=== PATIENT | male | born 1940 | race African-American/Black ===

== ENCOUNTER 2017-10-12 18:14 | Inpatient (IN) | payer OTHER ==
[~2017-10-12] VITALS: Ht 182.9 cm; Wt 72.6 kg
[2017-10-12 18:24] VITALS: Ht 182.9 cm; Wt 72.6 kg
[2017-10-12 19:31] LABS: BASOPHIL % 0.3 % (0-2); PLATELET COUNT 187 x10^3mcL (130-400)
[2017-10-12 19:45] LABS: CALCIUM 8.6 mg/dL (8.5-10.1); CARBON DIOXIDE 30.1 mmol/L (21-32); CHLORIDE SERUM 97 mmol/L (98-107); CREATININE SERUM 1.1 mg/dL (0.7-1.3); GLUCOSE SERUM 146 mg/dL (74-106); POTASSIUM SERUM 4.6 mmol/L (3.5-5.1); SODIUM SERUM 130 mmol/L (136-145)
[2017-10-12 19:51] LABS: RED CELL DISTRIBUTION WIDTH 15.3 % (11.5-14.5)
[2017-10-12 19:56] LABS: ALBUMIN 3.9 g/dL (3.4-5.0); ALKALINE PHOSPHATASE 198 U/L (46-116); ALT/SGPT 465 U/L (16-63); AST/SGOT 519 U/L (15-37); BILIRUBIN TOTAL 2.7 mg/dL (0.20-1.00); C REACTIVE PROTEIN 4.9 mg/dL (<=0.9); TOTAL PROTEIN, SERUM 7.9 g/dL (6.4-8.2)
[2017-10-12 20:01] LABS: FREE T4 1.14 ng/dL (0.76-1.46); FREE THYROXINE INDEX 3.3 ug/dL (1.4-4.5); T4(THYROXINE) 9.9 ug/dL (4.7-13.3)
[2017-10-12 20:07] LABS: CK-MB 3.2 ng/mL (0-3.6); T3 TOTAL 1.02 ng/mL
[2017-10-12 20:25] LABS: microscopic required? NO
[2017-10-12 20:32] LABS: urine erythrocyte NEGATIVE (NEGATIVE)
[2017-10-12 20:41] LABS: ERYTHROCYTE SED RATE 12 mm/hr (0-20)
[2017-10-12] MEDS ORDERED: ASPIR 8181 MG PO (20:53)
[2017-10-12] MEDS ORDERED: AMITRIPTYLINE H25 MG PO (20:53)
[2017-10-12] MEDS ORDERED: AMLODIPINE BESYL5 M2 PO (20:53)
[2017-10-12] MEDS ORDERED: ZESTRIL20 MG PO (20:54)
[2017-10-12] MEDS ORDERED: COLACE100 MG PO (20:54)
[2017-10-12] MEDS ORDERED: LIPI20 PO (20:54)
[2017-10-12] MEDS ORDERED: LEADER MELATONIN5 MG PO (20:55)
[2017-10-12] MEDS ORDERED: SENNA8.6 M2 PO (20:56)
[2017-10-12] MEDS ORDERED: SEROQUEL25 MG PO (20:56)
[2017-10-12] MEDS ORDERED: TERAZOSIN HCL2 MG PO (20:56)
[2017-10-12] MEDS ORDERED: TAMSULOSIN HYD0.4 M1 PO (20:56)
[2017-10-12 21:16] LABS: MAGNESIUM 1.9 mg/dL (1.8-2.4); PHOSPHOROUS 2.7 mg/dL (2.5-4.9)
[2017-10-12 21:18] LABS: CHOLESTEROL/HDL RATIO 1.7
[2017-10-12 21:38] VITALS: BP 130/72
[2017-10-12 23:00] VITALS: BP 112/69
[2017-10-13 05:06] VITALS: BP 123/73
[2017-10-13 06:49] LABS: PLATELET COUNT 143 x10^3mcL (130-400)
[2017-10-13 06:50] LABS: BASOPHIL % 0 % (0-2); RED CELL DISTRIBUTION WIDTH 15.9 % (11.5-14.5)
[2017-10-13 07:21] LABS: CALCIUM 7.7 mg/dL (8.5-10.1); CARBON DIOXIDE 25.4 mmol/L (21-32); CHLORIDE SERUM 106 mmol/L (98-107); CREATININE SERUM 0.8 mg/dL (0.7-1.3); GLUCOSE SERUM 180 mg/dL (74-106); PHOSPHOROUS 2.9 mg/dL (2.5-4.9); POTASSIUM SERUM 4.4 mmol/L (3.5-5.1); SODIUM SERUM 136 mmol/L (136-145)
[2017-10-13 08:55] VITALS: BP 139/82
[2017-10-13 12:58] VITALS: BP 122/69
[2017-10-13 16:08] VITALS: BP 114/61
[2017-10-13 20:37] VITALS: BP 127/69
[2017-10-14] VITALS (8 sets, daily range): BP systolic 108–158; BP diastolic 68–85
[2017-10-14 06:42] LABS: PLATELET COUNT 148 x10^3mcL (130-400)
[2017-10-14 06:44] LABS: BASOPHIL % 0 % (0-2); RED CELL DISTRIBUTION WIDTH 16.2 % (11.5-14.5)
[2017-10-14 07:01] LABS: CARBON DIOXIDE 24.2 mmol/L (21-32); CHLORIDE SERUM 107 mmol/L (98-107); CREATININE SERUM 0.8 mg/dL (0.7-1.3); GLUCOSE SERUM 177 mg/dL (74-106); POTASSIUM SERUM 4.2 mmol/L (3.5-5.1); SODIUM SERUM 135 mmol/L (136-145)
[2017-10-14 07:02] LABS: CALCIUM 7.8 mg/dL (8.5-10.1); MAGNESIUM 2.4 mg/dL (1.8-2.4); PHOSPHOROUS 2.4 mg/dL (2.5-4.9)
[2017-10-14 07:06] LABS: ALBUMIN 2.8 g/dL (3.4-5.0); BILIRUBIN DIRECT 0.21 mg/dL (0.0-0.2); BILIRUBIN TOTAL 0.6 mg/dL (0.20-1.00)
[2017-10-15 05:58] VITALS: BP 133/68
[2017-10-15 06:51] LABS: PLATELET COUNT 166 x10^3mcL (130-400)
[2017-10-15 06:57] LABS: BASOPHIL % 0 % (0-2); RED CELL DISTRIBUTION WIDTH 16.7 % (11.5-14.5)
[2017-10-15 08:21] LABS: MAGNESIUM 2.2 mg/dL (1.8-2.4); PHOSPHOROUS 2.7 mg/dL (2.5-4.9)
[2017-10-15 09:14] VITALS: BP 137/76
[2017-10-15 10:17] LABS: CARBON DIOXIDE 24 mmol/L (21-32); CHLORIDE SERUM 107 mmol/L (98-107); CREATININE SERUM 0.8 mg/dL (0.7-1.3); GLUCOSE SERUM 158 mg/dL (74-106); POTASSIUM SERUM 4.9 mmol/L (3.5-5.1); SODIUM SERUM 139 mmol/L (136-145)
[2017-10-15 10:18] LABS: ALBUMIN 2.9 g/dL (3.4-5.0); ALT/SGPT 235 U/L (16-63); AST/SGOT 196 U/L (15-37); BILIRUBIN TOTAL 0.6 mg/dL (0.20-1.00); CALCIUM 7.8 mg/dL (8.5-10.1)
[2017-10-15 10:19] LABS: ALKALINE PHOSPHATASE 105 U/L (46-116)
[2017-10-15 13:09] VITALS: BP 141/80
[2017-10-15 16:07] VITALS: BP 152/84
[2017-10-15 16:57] VITALS: BP 152/84
[2017-10-15] MEDS ORDERED: AMB5 PO (17:02)
[2017-10-15] MEDS ORDERED: AMERINET CHOICE1 PD3 IV (17:02)
[2017-10-15] MEDS ORDERED: MUCINEX600 MG PO (17:03)
[2017-10-15] MEDS ORDERED: SEN PO (17:03)
[2017-10-15] MEDS ORDERED: PRI20 PO (17:04)
[2017-10-15] MEDS ORDERED: LAC PO (17:04)
[2017-10-15 18:11] VITALS: BP 152/84
== END 2017-10-15 20:05 | disposition short-term general hospital (02) | DRG 871 ==
LOC: ED 18:14 → DU 20:33
PROVIDERS: Family Medicine; Internal Medicine Gastroenterology; Specialist
PROC: 0DJ08ZZ Inspection of Upper Intestinal Tract, Via Natural or Artificial Opening Endoscopic (ICD-10-PCS; principal; 2017-10-14 09:30)
DX: A41.9 Sepsis, unspecified organism (principal); J96.00 Acute respiratory failure, unspecified whether with hypoxia or hypercapnia; J44.1 Chronic obstructive pulmonary disease with (acute) exacerbation; K80.32 Calculus of bile duct with acute cholangitis without obstruction; E87.1 Hypo-osmolality and hyponatremia; R65.20 Severe sepsis without septic shock; K29.60 Other gastritis without bleeding; K57.10 Diverticulosis of small intestine without perforation or abscess without bleeding; I11.0 Hypertensive heart disease with heart failure; I27.20 Pulmonary hypertension, unspecified; I71.2 Thoracic aortic aneurysm, without rupture; I71.4 Abdominal aortic aneurysm, without rupture; I45.10 Unspecified right bundle-branch block; M94.0 Chondrocostal junction syndrome [Tietze]; K59.09 Other constipation; E11.65 Type 2 diabetes mellitus with hyperglycemia; E83.39 Other disorders of phosphorus metabolism; E78.5 Hyperlipidemia, unspecified; N40.0 Benign prostatic hyperplasia without lower urinary tract symptoms; F03.90 Unspecified dementia, unspecified severity, without behavioral disturbance, psychotic disturbance, mood disturbance, and anxiety; Z68.21 Body mass index [BMI] 21.0-21.9, adult; Z87.891 Personal history of nicotine dependence; Z79.82 Long term (current) use of aspirin
CPT/HCPCS: 36600; 43260; 76001; 82962; 83880; 84439; 87804; 94150; J1610; J2405; J2543; J2704; J2920; J2930; J3010; J7030; J7613; J7620; J7644; Q9967

== ENCOUNTER 2020-05-03 07:46 | Emergency (ER) | payer OTHER ==
[~2020-05-03] VITALS: Ht 182.9 cm; Wt 63.5 kg
[~2020-05-03 07:46] MED LIST: AMB5 PO; AMERINET CHOICE1 PD3 IV; AMITRIPTYLINE H25 MG PO; AMLODIPINE BESYL5 M2 PO; ASPIR 8181 MG PO; COLACE100 MG PO; LAC PO; LEADER MELATONIN5 MG PO; LIPI20 PO; MUCINEX600 MG PO; PANTOPRAZOLE SO40 M1 PO; PRE20 PO; PREDNISONE20 MG PO; PRI20 PO; PROAIR HFA8.5 GM INH; SEN PO; SENNA8.6 M2 PO; SEROQUEL25 MG PO; TAMSULOSIN HYD0.4 M1 PO; TERAZOSIN HCL2 MG PO; ZESTRIL20 MG PO
[2020-05-03 07:54] VITALS: Ht 182.9 cm; Wt 63.5 kg
[2020-05-03 08:30] LABS: BASOPHIL % 0.4 % (0-2); PLATELET COUNT 234 x10^3mcL (130-400)
[2020-05-03 08:37] LABS: RED CELL DISTRIBUTION WIDTH 15.9 % (11.5-14.5)
[2020-05-03 08:49] LABS: CARBON DIOXIDE 27.1 mmol/L (21-32); CHLORIDE SERUM 95 mmol/L (98-107); CREATININE SERUM 0.8 mg/dL (0.7-1.3); GLUCOSE SERUM 132 mg/dL (74-106); POTASSIUM SERUM 3.9 mmol/L (3.5-5.1); SODIUM SERUM 129 mmol/L (136-145)
[2020-05-03 08:54] LABS: ALKALINE PHOSPHATASE 80 U/L (46-116); ALT/SGPT 45 U/L (16-63); AST/SGOT 101 U/L (15-37); BILIRUBIN TOTAL 0.82 mg/dL (0.20-1.00); TOTAL PROTEIN, SERUM 6.7 g/dL (6.4-8.2)
[2020-05-03 09:01] LABS: ALBUMIN 3.3 g/dL (3.4-5.0)
[2020-05-03 09:28] VITALS: BP 160/95
== END 2020-05-03 10:35 | disposition home or self-care (01) ==
LOC: ED 07:46
PROVIDERS: Emergency Medicine
DX: J44.9 Chronic obstructive pulmonary disease, unspecified (principal); I10 Essential (primary) hypertension; R25.1 Tremor, unspecified; E11.9 Type 2 diabetes mellitus without complications; Z20.828 Contact with and (suspected) exposure to other viral communicable diseases; Z88.1 Allergy status to other antibiotic agents; Z88.2 Allergy status to sulfonamides